=== PATIENT | female | born 1980 | race Caucasian/White ===

== ENCOUNTER 2023-12-12 11:55 | Emergency (ER) | payer OTHER ==
[~2023-12-12] VITALS: Ht 167.6 cm; Wt 69.0 kg
[2023-12-12 11:57] VITALS: BP 113/71; RESP 16; TEMP 98.8; O2SAT 100
[2023-12-12 11:58] VITALS: PULSE 72; O2SAT 100
[2023-12-12 12:39] LABS: BASOPHILS % 0.6 % (0.0-2.0); EOSINOPHILS % 2.6 % (0.0-5.0); HEMOGLOBIN. 13.7 g/dL (12.0-16.0); LYMPHOCYTES % 21.2 % (20.0-50.0); MEAN CORPUSCULAR HEMOGLOBIN 30.7 pg (28.0-32.0); MEAN CORPUSCULAR HGB CONC 32.5 g/dL (31.0-37.0); MEAN CORPUSCULAR VOLUME 94.2 fL (81.0-99.0); MEAN PLATELET VOLUME 7.8 fl (7.4-10.4); NEUTROPHILS % 69.6 % (40.0-76.0); PLATELET 318 x1000/uL (130-400); RED BLOOD CELL COUNT 4.46 mill/uL (4.2-5.4); RED CELL DISTRIBUTION WIDTH 13.6 % (11.6-14.6); WHITE BLOOD COUNT 10.4 x1000/uL (4.5-11.0)
[2023-12-12 12:45] LABS: CHLORIDE 106 mEq/L (98-107); POTASSIUM 4.1 mEq/L (3.5-5.1); SODIUM 138 mEq/L (136-145)
[2023-12-12 12:46] LABS: CARBON DIOXIDE 25 mEq/L (21-32)
[2023-12-12 12:47] LABS: CALCIUM 9.7 mg/dL (8.7-10.4)
[2023-12-12 12:52] LABS: CREATININE 0.6 mg/dL (0.6-1.0); GLUCOSE 96 mg/dL (70-105); UREA NITROGEN BLOOD 7 mg/dL (9-23)
[2023-12-12 12:53] LABS: ALANINE AMINOTRANSFERASE 16 IU/L (10-49); ASPARTATE AMINOTRANSFERASE 21 IU/L (<34)
[2023-12-12 12:54] LABS: ALBUMIN 4.6 g/dL (3.2-4.8); BILIRUBIN DIRECT 0.2 mg/dL (<=3.0); BILIRUBIN TOTAL 0.7 mg/dL (0.1-1.0); PROTEIN TOTAL 7.6 g/dL (6.0-8.3)
[2023-12-12 13:03] LABS: CLARITY URINE CLEAR (CLEAR); COLOR URINE YELLOW (YELLOW); GLUCOSE URINE NEGATIVE (NEGATIVE); KETONES URINE NEGATIVE (NEGATIVE); LEUKOCYTE ESTERASE URINE NEGATIVE (NEGATIVE); NITRITE URINE NEGATIVE (NEGATIVE); OCCULT BLOOD URINE NEGATIVE (NEGATIVE); PH URINE 6.5 (4.5-8.0); PROTEIN URINE NEGATIVE (NEGATIVE)
[2023-12-12 13:08] LABS: UCG KIT LOT# 847686; UCG SCREEN NEGATIVE
[2023-12-12] MEDS ORDERED: METOCLOPRAMIDE HCL 10MG/2ML VIAL IM ONE (14:00)
[2023-12-12] MEDS: METOCLOPRAMIDE HCL 10MG/2ML VIAL IM NR (15:54)
[2023-12-12 16:10] LABS: HCG SCREEN NEGATIVE
== END 2023-12-12 16:18 | disposition home or self-care (01) ==
LOC: ER 11:55
DX: B34.9 Viral infection, unspecified (principal)
CPT/HCPCS: 99285; 76705; 80076; 80048; 81003; 81025; 84703; 83690; 85025; 36415; 93005; 96372; J2765